=== PATIENT | female | born 1950 ===

== ENCOUNTER → 2017-08-14 | Day surgery (SDC) | payer MEDICARE ==
[~2017-08-14] VITALS: Ht 170.2 cm; Wt 79.0 kg
[~2017-08-14] MED LIST: ACETAMINOPHEN/HYDROcodone 325 MG/5 MG TAB PO PRN; BUPIVACAINE/EPINEPHRINE 0.25% 50 ML VIAL ONE; CHLORHEXIDINE GLUCONATE 2 % 1 PACK (2 CLOTHS) TOPICAL PRN; DEXAMETHASONE SOD PHOS 4 MG/ML VIAL IV ONE; KETOROLAC TROMETHAMINE 30 MG/ML (IVP) VIAL IM PRN; KETOROLAC TROMETHAMINE 30 MG/ML (IVP) VIAL IV PUSH ONE; LACTATED RINGER'S 1000 ML INJ 1,000 ML ONE; LACTATED RINGER'S 1000 ML IV PRN; LIDOCAINE HCL 1% PF 5 ML SYRINGE OTHER ONE; LOSA50TA PO; METF500T PO; METOPROLOL TARTRATE 25 MG TAB PO PRN; ONDANSETRON HCL 4 MG/2 ML VIAL IV PUSH ONE; ONDANSETRON HCL 4 MG/2 ML VIAL IV PUSH PRN; POVIDONE IODINE 5% (ANTISEPSIS KIT) 4 APPLICATIONS EACH NARE PRN; PRAV80TA2 PO; PROPOFOL 200 MG/20 ML AMP IV ONE; SODIUM CHLORID 0.9% 500 ML IV PRN; TRIAMCINOLONE ACETONIDE 40 MG/ML VIAL ONE; VANCOMYCIN 1000 MG/NS 250 ML (for <70 kg) IV SCH; ceFAZolin 2 GM PREMIX 50 ML IV SCH
--- NOTE | 2017-08-14 11:22 | MP ---
cc: Saleem Hernandez MD DATE OF OPERATION: 08/14/2017 SURGEON: Saleem Hernandez MD PREOPERATIVE DIAGNOSIS: 1. Osteoarthritis/chondromalacia of the right knee. 2. Complex tear lateral meniscus. POSTOPERATIVE DIAGNOSIS: 1. Arthritis/chondromalacia right knee joint. 2. Tear, medial and lateral menisci. 3. Synovitis. PROCEDURE: 1. Chondroplasty right knee joint. 2. Subtotal medial and lateral meniscectomy. 3. Total synovectomy. DETAILS OF PROCEDURE: The patient was placed on the operating table in the supine position and adequate general anesthesia was administered by the anesthesiologist. The patient's right knee was prepped and draped in the usual sterile fashion. A time-out was called and the patient's name, location, procedure, etc. were fully verified. An Esmarch bandage was applied to the right lower extremity and a Pneumatic tourniquet was inflated to 300. An anterolateral portal was used for introduction of the scope and a systematic examination revealed severe osteoarthritis involving the patellofemoral joint and medial compartment. It also revealed tearing of the anterior horn of the medial meniscus and complex tearing of the lateral meniscus. A resector was placed through an anteromedial portal and a total synovectomy performed along with chondroplasty of the patellofemoral joint and lateral compartment. The lateral meniscus did show complex tearing through most of its extent and it was then excised primarily anterior to the middle one-third leaving healthier tissue still present. The anterior cruciate ligament did show some fraying and synovitis around it which was excised as well. The medial compartment showed the articular surfaces satisfactorily preserved, but there did appear to be tearing of the anterior horn of the medial meniscus which was excised using the motorized resector. After complete debridement, a more complete synovectomy was performed including a chondroplasty of the patella. There appeared to be a prominent suprapatellar plica which was also excised. After thorough irrigation and aspiration of all fluid, instruments were removed and the 2 stab wounds closed with 3-0 nylon. An intraarticular injection of corticosteroid into the knee joint with Marcaine and epinephrine was instilled totaling 1 mL of 40 mg Kenalog and 8 mL of 0.5% Marcaine with epinephrine. Xeroform gauze was applied over both wounds and a bulky dressing applied over the knee. The tourniquet was deflated after a total of 18 minutes. Sponge count, needle counts and instrument counts were reportedly correct x 2. Estimated blood loss was nil. The patient tolerated the procedure well and was transferred to the recovery room in satisfactory condition. MD KIRSTIN Bailey/AIMEE , 10:50 AM , 11:20 AM
[2017-08-14 12:45] VITALS: BP 133/81; PULSE 80; RESP 15; TEMP 97.4; O2SAT 93
== END | disposition home or self-care (01) ==
LOC: PHSDC 08:22
PROVIDERS: ATTEND Orthopaedic Surgery
DX: S83.271A Complex tear of lateral meniscus, current injury, right knee, initial encounter (principal); S83.231A Complex tear of medial meniscus, current injury, right knee, initial encounter; M94.261 Chondromalacia, right knee; M17.11 Unilateral primary osteoarthritis, right knee
CPT/HCPCS: 01400; 29880; J0690; J1100; J1885; J2405; J3010; J3301; J3370; J7050; J7120